=== PATIENT | female | born 1980 | race Caucasian/White ===

== ENCOUNTER 2017-01-15 23:39 | Emergency (ER) | payer OTHER ==
[2017-01-16 01:18] LABS: BILIRUBIN NEGATIVE (NEGATIVE); BLOOD NEGATIVE Ery/uL (NEGATIVE); CLARITY CLEAR (CLEAR); COLOR YELLOW (YELLOW); GLUCOSE (U) TRACE mg/dL (NORMAL); KETONE (U) TRACE mg/dL (NEGATIVE); LEUKOCYTES NEGATIVE Leu/uL (NEGATIVE); NITRITE NEGATIVE (NEGATIVE); PROTEIN 1+ mg/dL (NEGATIVE); SPECIFIC GRAVITY >=1.030 (1.001-1.030); UROBILINOGEN 0.2 mg/dL (0.2-1.0)
[2017-01-16 01:19] LABS: BASOPHIL 0.2 % (0-2); HCT 42.4 % (37.0-47.0); HGB 14.7 g/dl (12.5-16.0); LYMPHOCYTE 13.8 % (15-48); MCH 32.6 pg (25.0-31.0); MCHC 34.7 g/dL (32.0-36.0); MONOCYTE 8.9 % (0-12); MPV 9.6 fL (6.0-9.5); NEUTROPHIL 74.1 % (41-80); PLT 307 K/uL (150-400); RBC 4.51 M/uL (4.20-5.40); RDW 12.5 % (11.5-14.0)
[2017-01-16 01:23] LABS: WBC 13.5 K/uL (4.0-10.5)
[2017-01-16 01:25] LABS: BACTERIA TRACE; MUCOUS MODERATE
[2017-01-16 01:35] LABS: ALBUMIN 4.1 g/dL (3.5-5.0); BILIRUBIN - TOTAL 0.3 mg/dL (0.1-1.0); CREATININE 0.7 mg/dL (0.5-1.0); GLOBULIN (CALCULATION) 3.6 g/dL (2.2-4.2); POTASSIUM 3.8 mmol/L (3.5-5.1); TOTAL PROTEIN 7.7 g/dL (6.4-8.3)
== END 2017-01-16 04:22 | disposition home or self-care (01) ==
LOC: FER 23:39
PROVIDERS: Emergency Medicine
DX: K50.90 Crohn's disease, unspecified, without complications (principal); F17.210 Nicotine dependence, cigarettes, uncomplicated
CPT/HCPCS: 36415; 74022; 80053; 81001; 83690; 85025; 85651; 86140; J2270; J2405; J2930